=== PATIENT | male | born 1980 | race Caucasian/White ===

== ENCOUNTER 2018-11-21 13:32 | Emergency (ER) | payer MEDICARE, BC ==
[2018-11-21 13:47] VITALS: BP 143/102
--- NOTE | 2018-11-21 15:24 | CT ---
Head CT Technique: Multiple axial sections through the brain were obtained. Intravenous contrast was not utilized. Comparison: No previous intracranial imaging. Findings: Ventricles along with basal cisterns and sulci over the convexities are within normal limits for the patient's age. No abnormal parenchymal densities are seen. No evidence of intracranial hemorrhage. No midline shift or mass effect is seen. Bone window settings were reviewed which shows no acute calvarial abnormality. Visualized sinuses shows a minimal amount of fluid or mucosal thickening within the right mastoid sinus which is likely incidental. No acute calvarial abnormality is appreciated. Impression: 1. Minimal finding within the right mastoid sinus which is most likely incidental. 2. No acute intracranial abnormality is identified. Diagnostic code #2
--- NOTE | 2018-11-21 17:03 | EDM.PDOC ---
ED HPI GENERAL MEDICAL PROBLEM - General Chief Complaint: Neurological Problem Stated Complaint: SENT BY DR FOR CT SCAN Time Seen by Provider: 11/21/18 14:29 Source of Information: Reports: Patient History Limitations: Reports: No Limitations - History of Present Illness INITIAL COMMENTS - FREE TEXT/NARRATIVE: Patient is a 37 y/o male who presents to the E.D. complaining of having intermittent posterior headaches with blurred vision and possible seizures since Wednesday. Patient who is alert and oriented with complaint of chronic right sided headache that radiates into his neck. States he was evaluated by his PCP with instructions to go to the E.D. for CT of the head. Patient has a history of chronic sinusitis and has been evaluated by [facility]. [facility] for this complaint. He's had over 10 surgeries for sinus issues. In addition sees Dr. Thomson for his asthma/bronchitis. As of recent the symptoms have not worsened. Family who is present states the patient has at times had periods of staring into space followed by a period of being tired. They are concerned he is having mini strokes and/or petit mal seizures. Family states the patient gets the deer caught in the headlight look. Patient is able to speak with him but appears to be very tired. He has no grand mal seizure like activity. He suffers no focal neurologic weakness, slurred speach, and or facial droop. He at not time has bite his tongue or been incontinent to urine or stool. Patient admits as of recent has been more tired. Patient denies vision changes, fever, stiff neck, sinus pain changes, sore throat, sob, cp, n/v , abdominal pain, dysuria, rash, focal neurological deficits, or gait abnormalities. Patient has no history of strokes. Patient has a learning disability and mother is present along with girlfriend. Posterior Headache Pain Score (Numeric/FACES): 7 - Related Data Allergies Allergy/AdvReac Type Severity Reaction Status Date / Time fluticasone Allergy Tremors Verified 11/21/18 13:47 [From Advair Diskus] Penicillins Allergy unknown Verified 11/21/18 13:47 salmeterol Allergy Tremors Verified 11/21/18 13:47 [From Advair Diskus] Home Meds: Home Meds Acetaminophen 650 mg PO DAILY PRN 11/21/18 [History] Arformoterol [Brovana] 1 puff INH BID 11/21/18 [History] Benzonatate [Tessalon Perle] 100 mg PO TID PRN 11/21/18 [History] Budesonide [Pulmicort] 0.5 mg IH BEDTIME 11/21/18 [History] Fluticasone Furoate [Flonase Sensimist] 1 spray NS BID 11/21/18 [History] Montelukast [Singulair] 10 mg PO DAILY 11/21/18 [History] Triamcinolone Acetonide [Nasacort] 1 spray NS DAILY 11/21/18 [History] Past Medical History HEENT History: Reports: Impaired Vision Respiratory History: Reports: Asthma, Other (See Below) Other Respiratory History: bronchocystis Social & Family History - Tobacco Use Smoking Status *Q: Never Smoker - Recreational Drug Use Recreational Drug Use: No ED ROS GENERAL - Review of Systems Review Of Systems: ROS reveals no pertinent complaints other than HPI. ED EXAM, NEURO - Physical Exam Exam: See Below Exam Limited By: No Limitations General Appearance: Alert, WD/WN, No Apparent Distress Eye Exam: Bilateral Eye: EOMI, Normal Inspection, Nystagmus (None noted), PERRL , Vision Changes (None noted) Ears: Normal External Exam, Normal Canal, Hearing Grossly Normal, Normal TMs Nose: Normal Inspection, Normal Mucosa, No Blood Throat/Mouth: Normal Inspection, Normal Oropharynx, Normal Voice, No Airway Compromise Head Exam: Atraumatic, Normocephalic Neck: Normal Inspection, Supple, Non-Tender, Full Range of Motion. No: Lymphadenopathy (L), Lymphadenopathy (R) Respiratory/Chest: No Respiratory Distress, Lungs Clear, Normal Breath Sounds, No Accessory Muscle Use, Chest Non-Tender Cardiovascular: Normal Peripheral Pulses, Regular Rate, Rhythm, No Murmur GI/Abdominal: Normal Bowel Sounds, Soft, Non-Tender, No Organomegaly, No Distention Neurological: Alert, Normal Mood/Affect, Normal Dorsiflexion, CN II-XII Intact, Normal Plantar Flexion, Normal Gait, No Motor/Sensory Deficits, Oriented x 3, Other (No facial droop, no slurred speech, no tongue deviation, no pronator drift, no weakness discrepancies to the upper or lower extremities. Finger to nose and rapid alternating movements are normal. Gait is normal.) Back Exam: Normal Inspection Extremities: Normal Inspection, Normal Range of Motion, Non-Tender, No Pedal Edema Psychiatric: Normal Affect, Normal Mood Skin Exam: Warm, Dry, Intact, Normal Color, No Rash Course - Vital Signs Last Recorded V/S: Last Vital Signs Temp 96.9 F 11/21/18 13:44 Pulse 111 H 11/21/18 13:44 Resp 16 11/21/18 13:44 BP 143/102 H 11/21/18 13:44 Pulse Ox 99 11/21/18 13:44 - Orders/Labs/Meds Labs: Laboratory Tests 11/21/18 11/21/18 11/21/18 Range/Units 14:59 14:59 14:59 WBC 9.13 H (4.23-9.07) K/mm3 RBC 4.75 (4.63-6.08) M/mm3 Hgb 15.2 (13.7-17.5) gm/L Hct 44.3 (40.1-51.0) % MCV 93.3 H (79.0-92.2) fl MCH 32.0 (25.7-32.2) pg MCHC 34.3 (32.2-35.5) g/dl RDW Std Deviation 42.0 (35.1-43.9) fL Plt Count 313 (163-337) K/mm3 MPV 8.8 L (9.4-12.3) fl Neutrophils % (Manual) 66 H (40-60) % Band Neutrophils % 0 (0-10) % Lymphocytes % (Manual) 22 (20-40) % Atypical Lymphs % 0 % Monocytes % (Manual) 11 H (2-10) % Eosinophils % (Manual) 1 (0.8-7.0) % Basophils % (Manual) 0 L (0.2-1.2) Platelet Estimate Adequate RBC Morph Comment Normal PT 10.7 (9.5-12.1) SECONDS INR 0.98 APTT 29 (24-31) SECONDS Sodium 140 (136-145) mEq/L Potassium 4.0 (3.5-5.1) mEq/L Chloride 104 (98-107) mEq/L Carbon Dioxide 25 (21-32) mEq/L Anion Gap 15.0 (5-15) BUN 10 (7-18) mg/dL Creatinine 1.1 (0.7-1.3) mg/dL Est Cr Clr Drug Dosing 85.13 mL/min Estimated GFR (MDRD) > 60 (>60) mL/min BUN/Creatinine Ratio 9.1 L (14-18) Glucose 106 (74-106) mg/dL Calcium 9.2 (8.5-10.1) mg/dL Total Bilirubin 0.4 (0.2-1.0) mg/dL AST 18 (15-37) U/L ALT 43 (16-63) U/L Alkaline Phosphatase 92 (46-116) U/L C-Reactive Protein 0.3 (<1.0) mg/dL Total Protein 7.6 (6.4-8.2) g/dl Albumin 3.9 (3.4-5.0) g/dl Globulin 3.7 gm/dL Albumin/Globulin Ratio 1.1 (1-2) TSH 3rd Generation 0.969 (0.358-3.74) uIU/mL Urine Color (Yellow) Urine Appearance (Clear) Urine pH (5.0-8.0) Ur Specific [place] (1.005-1.030) Urine Protein (Negative) Urine Glucose (UA) (Negative) Urine Ketones (Negative) Urine Occult Blood (Negative) Urine Nitrite (Negative) Urine Bilirubin (Negative) Urine Urobilinogen (0.2-1.0) Ur Leukocyte Esterase (Negative) Urine RBC (0-5) /hpf Urine WBC (0-5) /hpf Ur Epithelial Cells (0-5) /hpf Urine Bacteria (FEW) /hpf Urine Mucus (FEW) /hpf 11/21/18 Range/Units 16:35 WBC (4.23-9.07) K/mm3 RBC (4.63-6.08) M/mm3 Hgb (13.7-17.5) gm/L Hct (40.1-51.0) % MCV (79.0-92.2) fl MCH (25.7-32.2) pg MCHC (32.2-35.5) g/dl RDW Std Deviation (35.1-43.9) fL Plt Count (163-337) K/mm3 MPV (9.4-12.3) fl Neutrophils % (Manual) (40-60) % Band Neutrophils % (0-10) % Lymphocytes % (Manual) (20-40) % Atypical Lymphs % % Monocytes % (Manual) (2-10) % Eosinophils % (Manual) (0.8-7.0) % Basophils % (Manual) (0.2-1.2) Platelet Estimate RBC Morph Comment PT (9.5-12.1) SECONDS INR APTT (24-31) SECONDS Sodium (136-145) mEq/L Potassium (3.5-5.1) mEq/L Chloride (98-107) mEq/L Carbon Dioxide (21-32) mEq/L Anion Gap (5-15) BUN (7-18) mg/dL Creatinine (0.7-1.3) mg/dL Est Cr Clr Drug Dosing mL/min Estimated GFR (MDRD) (>60) mL/min BUN/Creatinine Ratio (14-18) Glucose (74-106) mg/dL Calcium (8.5-10.1) mg/dL Total Bilirubin (0.2-1.0) mg/dL AST (15-37) U/L ALT (16-63) U/L Alkaline Phosphatase (46-116) U/L C-Reactive Protein (<1.0) mg/dL Total Protein (6.4-8.2) g/dl Albumin (3.4-5.0) g/dl Globulin gm/dL Albumin/Globulin Ratio (1-2) TSH 3rd Generation (0.358-3.74) uIU/mL Urine Color Yellow (Yellow) Urine Appearance Clear (Clear) Urine pH 6.5 (5.0-8.0) Ur Specific [place] 1.025 (1.005-1.030) Urine Protein 1+ H (Negative) Urine Glucose (UA) Negative (Negative) Urine Ketones Negative (Negative) Urine Occult Blood Negative (Negative) Urine Nitrite Negative (Negative) Urine Bilirubin Negative (Negative) Urine Urobilinogen 0.2 (0.2-1.0) Ur Leukocyte Esterase Negative (Negative) Urine RBC 0-5 (0-5) /hpf Urine WBC 0-5 (0-5) /hpf Ur Epithelial Cells 0-5 (0-5) /hpf Urine Bacteria Few (FEW) /hpf Urine Mucus Few (FEW) /hpf - Re-Assessments/Exams Free Text/Narrative Re-Assessment/Exam: On examination patient is alert and oriented 3. Vital signs are stable. No focal neurological deficits noted on exam. His provider requested patient obtain a CT of his head due to the posterior headaches, intermittent blurred vision, trouble hearing at times, and possible seizure-like activity since Wednesday. Of note patient is had no symptoms since Wednesday after stopping the Tessalon Perles. Family states patient was sleeping quite excessively while taking the Tessalon Perles. Sedation is a common reaction with taking. In addition headaches, dizziness, nausea, confusion, hallucinations are some additional adverse reactions to name a few. Patient may be having some petit mal seizures although patient has no history. Mother states patient's brother has a history of similar symptoms that are classified as seizures. CT of the head has been ordered with no acute findings. Minimal findings within the right mastoid sinuses which is most likely incidental. I have discussed the lab results with the patient and family. They will follow up with PCP this week for reevaluation. They're instructed to return back to the hospital if patient develops any new or worsening symptoms. They have no further questions or concerns. Departure - Departure Time of Disposition: 17:04 Disposition: Home, Self-Care 01 Condition: Good Clinical Impression: Episodic altered awareness Adverse effects of medication Qualifiers: Encounter type: initial encounter Qualified Code(s): T50.905A - Adverse effect of unspecified drugs, medicaments and biological substances, initial encounter - Discharge Information Referrals: German Kendrick MD [Primary Care Provider] - Forms: ED Department Discharge Additional Instructions: As discussed I suspect patient's intermittent altered mental status change was associated with the increased sedation with taking the Tessalon Perles. This is a common reaction. Symptoms have improved with stopping this medication. I do suggest patient be evaluated by PCP this week to ensure symptoms are improving and not reoccurring. If continue to occur patient will require a EEG to ensure he is not having seizures. Please monitor for the frequency, duration, of these episodes. Please return back to the ED at any time for any new or worsening symptoms.
== END 2018-11-21 17:14 | disposition home or self-care (01) ==
LOC: JD.ED 13:32
DX: R51 Headache (principal); R40.4 Transient alteration of awareness; T48.3X5A Adverse effect of antitussives, initial encounter; T42.6X5A Adverse effect of other antiepileptic and sedative-hypnotic drugs, initial encounter; J45.909 Unspecified asthma, uncomplicated; Z79.899 Other long term (current) drug therapy; Z88.0 Allergy status to penicillin; Z88.8 Allergy status to other drugs, medicaments and biological substances
CPT/HCPCS: 36415; 70450; 70450-26; 80053; 81001; 84443; 85007; 85027; 85610; 85730; 86140; 99285-25